=== PATIENT | male | born 1980 | race Caucasian/White ===

== ENCOUNTER 2021-06-12 22:14 | Emergency (ER) | payer SELFPAY ==
[2021-06-12 22:18] VITALS: BP 162/88; PULSE 100; RESP 18; TEMP 36.4; O2SAT 97
--- NOTE | 2021-06-12 22:30 | RT.EKG_ITS ---
APPROVED REPORT Exam: Resting ECG Reason for Exam: hypertension Patient Location: E HR:117 bpm ECG Measurements Heart Rate [address] 171 P 51 QRSd 74 QRS 70 QT 302 T -4 QTc 420 Conclusion Sinus tachycardia...rate> 99 Probable left atrial enlargement...P >50mS, <-0.10mV V1
--- NOTE | 2021-06-12 22:34 | W.ED.GENAD ---
Discharge Plan Disposition Patient Disposition: HOME Condition: Stable Discharge Details Clinical Impression: BP (high blood pressure), Anxiety Primary Care Provider: Unknown,Unknown ED Provider: Cassandra Gregg Home Meds and New Rx's Prescriptions: No Action No Known Home Meds RF: 0 Discharge Instructions Instructions: Hypertension (ED), Anxiety (ED) Additional Instructions: drink 6-8 glasses of water to stay hydrated DASH diet relaxation techniques monitor blood pressure 2 times weekly in the am and record to bring to follow up appointment Referrals: Unknown,Unknown [Primary Care Provider] - (establish with primary care provider for follow up) Medical Decision Making patient randomly took his blood pressure tonight after a strenuous work out. found it elevated and then googled it, now fearful he will . has no symptoms. will check baseline EKG, bmp and ua. reassurance provided. will need to establish with pcp for further outpatient follow up and recommendations Lab Data Lab results reviewed: Yes I reviewed the patient's lab results. Lab results narrative: Laboratory Tests Range/Units 06/12/21 06/12/21 22:50 22:52 Sodium (136-145) mmol/L 139 Potassium (3.5-5.1) mmol/L 3.9 Chloride (98-107) mmol/L 104 Carbon Dioxide (21.0-32.0) mmol/L 26.4 Anion Gap (3-11) mmol/L 8.6 BUN (7-18) mg/dL 25 H Creatinine (0.70-1.30) mg/dL 1.1 Estimated GFR/1.73 m2 (mL/min/1.73m2) >= 60.00 Glucose (74-106) mg/dL 130 H Calcium (8.5-10.1) mg/dL 9.3 Urine Color (Yellow) Yellow Urine Clarity (Clear) Clear Urine pH (5-8) 6.0 Ur Specific [place] (1.005-1.025) >= 1.030 H Urine Protein (Negative) mg/dL Negative Urine Ketones (Negative) mg/dL Trace H Urine Blood (Negative) Negative Urine Nitrite (Negative) Negative Urine Bilirubin (Negative) Negative Urine Urobilinogen (Up TO 0.2) EU/dL 0.2 Ur Leukocyte Esterase (Negative) Negative Urine Glucose (Negative) mg/dL Negative ECG Data Attestation: I personally reviewed and interpreted this ECG (s) as follows: (normal sinus rhythm with no acute findings, read by Dr Hasmukh Foster) HPI General Mode of arrival: ambulatory. Date/Time Provider Initiated Documentation: 06/12/21 22:17. Limitations to Documentation: no limitations. Information obtained by: patient. HPI Narrative: patient presents for evaluation of high blood pressure. denies headache, visual disturbance chest pain or sob. extremely anxious about it took it for curiosity, was talking to family member and remember that a while ago he was told at his eye appointment it was elevated and he should recheck it so decided to tonight on a family members monitor. is physically active, moderate to advance activity level. Related Data Home Medications Medication Instructions Recorded Confirmed Unknown [No Known Home Meds] 06/12/21 06/12/21 Allergies Allergy/AdvReac Type Severity Reaction Status Date / Time No Known Allergies Allergy Unverified 06/12/21 22:28 General Stated Complaint: GenMedical PHILIP: 4 Review of Systems All systems reviewed & are unremarkable except as noted in HPI and below Cardiovascular Cardiovascular: Denies chest pain and Denies dyspnea Respiratory Respiratory: Denies cough and Denies dyspnea Genitourinary Genitourinary: Reports other (no urinary c/o) Psychiatric Psychiatric: Reports anxiety PFSH Social History Smoking/Tobacco Use Status: Never Smoking risk assessment performed?: Yes Alcohol Intake: current Alcohol Intake frequency: a few times a week Alcohol type: beer and wine Substance use type: does not use Do you feel safe at home: Yes Do you feel safe in your relationship?: Yes Exam Chest Chest: normal inspection of the chest Resp Effort & Inspection: normal respiratory effort Auscultation: clear to auscultation bilaterally Cardio Rate: regular rate Rhythm: regular rhythm Neuro General: patient alert, patient awake, patient oriented x3 and no focal motor deficits Psych Appearance: grossly normal Mood: anxious mood Affect: anxious affect Attitude: cooperative Thought Process: perseverating Thought Content: phobias Insight: fair Judgment: fair Course Vital Signs Vital signs: Vital Signs Temperature 36.4 C L 06/12/21 22:18 Pulse 100 H 06/12/21 22:18 Respiratory Rate 18 06/12/21 22:18 Blood Pressure 162/88 H 06/12/21 22:18 Pulse Oximetry 97 06/12/21 22:18 Temperature 36.4 C L 06/12/21 22:18 Temperature Source Temporal Artery Scan 06/12/21 22:18 Pulse 100 H 06/12/21 22:18 Respiratory Rate 18 06/12/21 22:18 Respiratory Effort Non-Labored 06/12/21 22:29 Respiratory Depth Normal 06/12/21 22:29 Respiratory Pattern Normal 06/12/21 22:29 Blood Pressure 162/88 H 06/12/21 22:18 Blood Pressure Position Sitting 06/12/21 22:18 Pulse Oximetry 97 06/12/21 22:18 Oxygen Delivery Method Room Air 06/12/21 22:18 Oxygen Flow Rate 0 06/12/21 22:18 Pain Level 0 06/12/21 22:18
[2021-06-12 22:35] VITALS: PULSE 94
[2021-06-12 23:03] LABS: Bilirubin Negative (Negative); Blood Negative (Negative); Clarity Clear (Clear); Glucose Negative (Negative); Ketones Trace mg/dL (Negative); Leukocyte Esterase Negative (Negative); Nitrite Negative (Negative); Specific Gravity >= 1.030 (1.005-1.025); Urobilinogen 0.2 EU/dL (Up TO 0.2)
[2021-06-12 23:05] LABS: Anion Gap 8.6 mmol/L (3-11); BUN 25 mg/dL (7-18); CO2 26.4 mmol/L (21.0-32.0); CREATININE 1.1 mg/dL (0.70-1.30); Calcium 9.3 mg/dL (8.5-10.1); Chloride 104 mmol/L (98-107); Glucose 130 mg/dL (74-106); Potassium 3.9 mmol/L (3.5-5.1); Sodium 139 mmol/L (136-145)
[2021-06-12 23:37] VITALS: BP 154/93; PULSE 92; RESP 18; O2SAT 98
== END 2021-06-12 23:40 | disposition home or self-care (01) ==
PROVIDERS: Emergency Provider Nurse Practitioner Acute Care
DX: I10 Essential (primary) hypertension (principal); F41.9 Anxiety disorder, unspecified
CPT/HCPCS: 36415; 80048; 93005; 99283; 81003; 93010; 99282